=== PATIENT | female | born 1950 | race Caucasian/White ===

== ENCOUNTER 2018-04-07 01:02 | Outpatient (CLI) | payer MEDICARE, SELFPAY ==
[2018-04-07 10:43] LABS: Cholesterol 242 mg/dL (50-200); HDL Cholesterol 89 mg/dL (40-60); LDL CHOLESTEROL 134 mg/dL (<100); TSH (W/Ref FT4) 3.68 uIU/mL (0.358-3.74); Triglyceride 87 mg/dL (30-150)
== END 2018-04-07 01:22 ==
PROVIDERS: PCP Family Medicine; Visit Provider Family Medicine
DX: E78.00 Pure hypercholesterolemia, unspecified (principal); R79.89 Other specified abnormal findings of blood chemistry
CPT/HCPCS: 36415; 80061; 83721; 84443

== ENCOUNTER 2018-04-18 00:42 | Outpatient (CLI) | payer MEDICARE, SELFPAY ==
--- NOTE | 2018-04-18 15:45 | DI.DEXA_ITS ---
SYMPTOM/DIAGNOSIS: OSTEOPENIA, M85.88, M85.80 DEXA SCAN: The LAURA image shows no evidence of compression fractures. The bone mineral density measurements of the lumbar spine correspond to a total T score of -1.8, consistent with osteopenia. The bone mineral density measurements of the left hip correspond to a total T score of -1.3 and a femoral neck T score of -2.1, also in the osteopenic range. The bone mineral density measurements of the left forearm correspond to a T score of the distal third of the -1.5, consistent with osteopenia. IMPRESSION: Osteopenia of the lumbar spine, left hip and left forearm.
== END 2018-04-18 01:02 ==
PROVIDERS: PCP Family Medicine; Visit Provider Family Medicine
DX: M85.88 Other specified disorders of bone density and structure, other site (principal)
CPT/HCPCS: 77080

== ENCOUNTER 2019-04-17 10:35 | Outpatient (CLI) | payer MEDICARE, SELFPAY ==
[2019-04-18 10:58] LABS: Hepatitis C Ab w Rflx HCV PCR Negative (Negative)
== END 2019-04-17 10:55 ==
PROVIDERS: PCP Family Medicine; Visit Provider Family Medicine
DX: Z11.59 Encounter for screening for other viral diseases (principal)
CPT/HCPCS: 36415; 86803

== ENCOUNTER 2020-05-26 03:14 | Outpatient (CLI) | payer MEDICARE, SELFPAY ==
[2020-05-26 13:34] LABS: Vitamin D 25 Total 84.2 ng/ml (30-100)
== END 2020-05-26 03:15 | disposition home or self-care (01) ==
LOC: LBO 03:14
PROVIDERS: PCP Family Medicine; Visit Provider Family Medicine
DX: M81.0 Age-related osteoporosis without current pathological fracture (principal)
CPT/HCPCS: 36415; 82306

== ENCOUNTER 2020-07-24 00:57 | Outpatient (CLI) | payer MEDICARE, SELFPAY ==
--- NOTE | 2020-07-24 09:30 | DI.DEXA_ITS ---
Exam(s) XR DEXA BONE DENSITY W/WO LAURA EXAM: XR DEXA BONE DENSITY W/WO LAURA CLINICAL HISTORY: osteoporosis, M81.0, osteopenia, M85.80 TECHNIQUE: Routine DEXA evaluation of the lumbar spine, hip, or forearm. COMPARISON: Prior DEXA scan April 2018 FINDINGS: Performed on a [employer] unit. Lateral image: No compression fracture evident. Lumbar Spine total T-score: -1.5. Prior 2019 reading was -1.8 Hip total T-score:-1.5. Prior 2019 reading was -1.3. Independent reading at the left femoral neck yields a T-score of -2.2. Forearm total T-score: -1.7 IMPRESSION: Bone mineral density measures in the osteopenia range. Fracture risk is moderate. Note: Any spine fracture indicates 5x risk for subsequent spine fracture and 2x risk for subsequent h ip fracture. World Health Organization criteria for BMD interpretation classify patients: Normal...... T- Score at or above -1.0 Osteopenic... T- Score between -1.0 and -2.5 Osteoporosis... T-Score at or below -2.5
== END 2020-07-24 01:17 ==
PROVIDERS: PCP Family Medicine; Visit Provider Family Medicine
DX: M81.0 Age-related osteoporosis without current pathological fracture (principal); M85.89 Other specified disorders of bone density and structure, multiple sites
CPT/HCPCS: 77080

== ENCOUNTER 2021-08-03 20:33 | Outpatient (REF) | payer MEDICARE, SELFPAY ==
[2021-08-05 11:22] LABS: COVID-19 RT-PCR UVMMC Result Negative (Negative)
== END 2021-08-03 20:34 | disposition home or self-care (01) ==
LOC: LBN 20:33
PROVIDERS: PCP Family Medicine
DX: H92.01 Otalgia, right ear; Z20.822 Contact with and (suspected) exposure to COVID-19
CPT/HCPCS: U0003

== ENCOUNTER 2021-09-30 11:21 | Outpatient (REF) | payer MEDICARE, SELFPAY ==
--- NOTE | 2021-09-30 09:50 | ENDOMET_PTH ---
PATIENT: Isabel Lindquist LOC: [facility] U#:[id number] AGE/SX: 71/F ROOM: RE09/30/[address]: Prema Gomez MD : 1950 BED: DIS: 09/30/2021 SPEC #: [id number] RECD: 09/30/21 12:59 STATUS: ROSIO REQ #: [id number] MAYCO: 09/30/21 09:[address]: Prema Gomez DEPT: Surgical Specimen RECD BY: Ro Lugo ENTERED: 09/30/21 12:59 SP TYPE: Endomet OTHR DR: Paulette Zavala MD, DC Tissues: 1 - ENDOMETRIUM BX/CURRETTE Procedures: GROSS AND MICRO LEVEL 4 Comments: [id number]
== END 2021-09-30 11:22 | disposition home or self-care (01) ==
LOC: LBN 11:21
PROVIDERS: PCP Family Medicine; Visit Provider Obstetrics & Gynecology
DX: N95.0 Postmenopausal bleeding (principal); N71.1 Chronic inflammatory disease of uterus
CPT/HCPCS: 88305

== ENCOUNTER 2021-10-06 04:04 | Outpatient (CLI) | payer MEDICARE, SELFPAY ==
[2021-10-06 08:25] LABS: HCT 45.8 % (36.0-46.0); HGB 14.9 g/dL (11.2-15.7); MCH 29.3 pg (27.0-33.0); MCHC 32.5 % (32.0-36.0); MCV 90 fL (80-95); MPV 9.9 fL (8.0-11.0); Platelet Count 223 10^3/uL (130-400); RBC 5.09 10^6/uL (3.93-5.22); RDW 13.2 % (11.7-14.6); WBC 6.25 10^3/uL (4.4-10.8)
[2021-10-06 09:38] LABS: TSH (W/Ref FT4) 3.91 uIU/mL (0.36-3.74)
[2021-10-06 10:37] LABS: FREE T4 0.87 ng/dL (0.76-1.46)
== END 2021-10-06 04:05 | disposition home or self-care (01) ==
LOC: LBO 04:04
PROVIDERS: PCP Family Medicine; Visit Provider Family Medicine
DX: R87.620 Atypical squamous cells of undetermined significance on cytologic smear of vagina (ASC-US) (principal); E78.00 Pure hypercholesterolemia, unspecified
CPT/HCPCS: 36415; 85027; 84439; 84443

== ENCOUNTER → 2021-10-13 01:52 | Outpatient (CLI) | payer MEDICARE, SELFPAY ==
--- NOTE | 2021-10-13 06:45 | DI.US_ITS ---
Exam(s) US PELVIS TRANSVAGINAL EXAM: US PELVIS TRANSVAGINAL CLINICAL HISTORY: DDYSFUNCTIONAL UTERINE BLEEDING,VAGINAL ATROPHY,N93.8,N95.2. TECHNIQUE: Transabdominal and transvaginal pelvic ultrasound was performed using standard protocol. COMPARISON: No exams were available for comparison FINDINGS: KIDNEYS: Kidneys are symmetric in size. No evidence of renal calculi. No evidence of hydronephrosis. No renal mass or cyst identified. UTERUS: Position: Anteverted. Size: 5.5 long by 2.1 AP by 3.8 transverse cm Endometrium: 0.4 cm. Normal for patient's menstrual status. There is some fluid within the endometria l canal. Myometrium: Unremarkable. Cervix: Cervical nabothian cyst is present. OVARIES: The left ovary was only seen transabdominally. Right: In the right adnexa there is a 7.7 x 6.3 x 8.6 cm septated cystic mass. A separate right ovar y is not visualized. Left: 2.6 x 1.1 x 2.1 cm Cyst or mass: No suspicious cystic or solid masses. CUL-DE-SAC: Free fluid: None. Other: None. IMPRESSION: 1. Normal sonographic appearance of the kidneys. 2. Normal endometrial thickness in this postmenopausal patient. There is a small amount of fluid see n within the endometrial canal. 3. 7.7 x 6.3 x 8.6 cm septated cystic mass in the right adnexa. A separate right ovary is not visual ized. This may be ovarian in origin. Given the size and age of the patient malignancy should be con sidered. Gynecologic consult is recommended for further evaluation. MRI of the pelvis may be consid ered for further characterization. DATA REPOSITORY:
== END ==
PROVIDERS: PCP Family Medicine; Visit Provider Family Medicine
DX: N93.8 Other specified abnormal uterine and vaginal bleeding (principal); N95.2 Postmenopausal atrophic vaginitis
CPT/HCPCS: 76830; 76856

== ENCOUNTER 2021-10-19 03:50 | Outpatient (CLI) | payer MEDICARE, SELFPAY ==
[2021-10-19 09:58] LABS: Source Nasal/Nares
[2021-10-19 14:11] LABS: HCT 43.9 % (36.0-46.0); HGB 14.8 g/dL (11.2-15.7); MCH 29.7 pg (27.0-33.0); MCHC 33.7 % (32.0-36.0); MCV 88 fL (80-95); MPV 10.6 fL (8.0-11.0); Platelet Count 220 10^3/uL (130-400); RBC 4.99 10^6/uL (3.93-5.22); RDW 13.3 % (11.7-14.6); RDW-SD 43.1 fL
[2021-10-19 17:27] LABS: COVID-19 PCR Negative (Negative)
[2021-10-19 22:33] LABS: CEA <0.5 ng/mL (See Note)
[2021-10-20 09:17] LABS: CA 125 17 U/mL (<30)
[2021-10-21 12:38] LABS: CA 19-9 11 U/mL (<35)
== END 2021-10-19 03:51 | disposition home or self-care (01) ==
LOC: LBO 03:50
PROVIDERS: PCP Family Medicine; Visit Provider Obstetrics & Gynecology
DX: N95.0 Postmenopausal bleeding (principal); N83.291 Other ovarian cyst, right side; Z20.822 Contact with and (suspected) exposure to COVID-19; Z01.818 Encounter for other preprocedural examination; Z01.812 Encounter for preprocedural laboratory examination; Z80.0 Family history of malignant neoplasm of digestive organs; Z80.8 Family history of malignant neoplasm of other organs or systems; E78.5 Hyperlipidemia, unspecified
CPT/HCPCS: 36415; 85027; 86304; 86850; 86900; 86901; 87635; 82378; 85014; 85018; 86301

== ENCOUNTER 2021-10-21 07:27 | Day surgery (SDC) | payer MEDICARE, SELFPAY ==
[2021-10-21] VITALS (10 sets, daily range): BP systolic 98–144; BP diastolic 62–86; PULSE 53–78; RESP 10–18; TEMP 36–36.5; O2SAT 93–100; BMI 18.5
--- NOTE | 2021-10-21 08:08 | W.ANESPRE ---
General Info Date of Service Date Performed: 10/21/21 Height: 5 ft 2.5 in Weight: 46.6 kg Body Mass Index (BMI): 18.5 Surgical Procedure: Operation Date: 10/21/21 09:10 Proposed Procedure Side Surgeon p Dilation & Curettage Prema Gomez MD Meds Allergies and Home Medications Allergies Allergy/AdvReac Type Severity Reaction Status Date / Time Sulfa (Sulfonamide Allergy Unknown Verified 10/19/21 14:57 Antibiotics) Home Medication Medication Instructions Recorded cholecalciferol (vitamin D3) 125 5,000 unit PO DAILY 05/17/16 mcg (5,000 unit) capsule estradiol 10 mcg vaginal tablet 10 mcg vaginal 2X Week #25 tab-caps 05/25/21 (Vagifem) metronidazole 0.75 % topical cream 1 applic topical BID PRN 10/21/21 peg 800-[id number]-[id number] 1 1 drp ophthalmic (eye) DAILY 10/21/21 %-0.2 %-0.2 % eye drops (Dry Eye Relief) Current Visit Medications: Current Medications Generic Name Dose Route Start Last Admin Trade Name Freq PRN Reason Stop Dose Admin Ringer's Solution 1,000 mls @ 125 mls/hr 10/21/21 06:00 IV 11/19/21 23:59 INFUSION DOROTHEA IV Miscellaneous Supplies 1 each 10/21/21 06:00 Iv Access IV 11/19/21 23:59 DIRECTED DOROTHEA Sodium Chloride 0 ml 10/21/21 06:00 Normal Saline Flush 10 Ml Syr IV 11/19/21 23:59 PRN PRN Sodium Chloride 0 ml 10/21/21 06:00 Normal Saline 10 Ml Vial IJ 11/19/21 23:59 DIRECTED PRN Sterile Water 0 ml 10/21/21 06:00 Water,Injection,Sterile 10 Ml Vial IJ 11/19/21 23:59 DIRECTED PRN PFSH Active Problems Active Problems: Problem Status Onset Code Right ovarian cyst N83.201 Postmenopausal bleeding N95.0 Hypercholesteremia 03/03/17 E78.00 Sigmoid diverticulitis 08/25/15 K57.32 Medical History Medical History Abnormal thyroid blood test (04/25/15) Cerumen debris on tympanic membrane Family history of GI malignancy mom-colon CA at age 55 Family history of Bolden syndrome Neuralgia (04/21/15) L cervical and arm Osteopenia Pap smear vag w ASC-US neg. HPV Rosacea Seasonal allergic reaction Vaginal atrophy (12/31/13) Stopped vagifem September 2021 with discovery of large ovarian cyst Vertigo (02/28/14) Vitamin D deficiency (12/31/13) Surgical History Surgical History Colonoscopy - MAC (~2005) n/l Endometrial Biopsy neg H/O surgical procedure endometrial biopsy-N/L Tobacco Smoking/Tobacco Use Status: Never Passive smoking exposure: Yes Second hand exposure: Yes Alcohol Alcohol Intake: former Substance Use Substance use: Never Substance use type: does not use Vital Signs and Lab Results Vital Signs Most Recent Vital Signs in EMR: Most Recent Vital Signs Temp Pulse Resp BP Pulse Ox 36.5 C 78 18 115/85 98 10/21/21 07:40 10/21/21 07:40 10/21/21 07:40 10/21/21 07:40 10/21/21 07:40 Lab Results Blood Type / Crossmatch: Patient ABO/Rh A Positive 10/19/21 Antibody Screen NEGATIVE 10/19/21 Complete Blood Count: White Blood Count 7.50 10^3/uL (4.4-10.8) 10/19/21 13:38 Red Blood Count 4.99 10^6/uL (3.93-5.22) 10/19/21 13:38 Hemoglobin 14.8 g/dL (11.2-15.7) 10/19/21 13:38 Hematocrit 43.9 % (36.0-46.0) 10/19/21 13:38 Platelet Count 220 10^3/uL (130-400) 10/19/21 13:38 Complete Metabolic Panel: No Data to Display Liver Function Panel: No Data to Display Coagulation Panel: No Data to Display Cardiac Panel: No Data to Display Arterial Blood Gas: No Data to Display Venous Blood Gas: No Data to Display Pancreas Panel: No Data to Display Thyroid Panel: Thyroid Stimulating Hormone (TSH) 3.91 uIU/mL (0.36-3.74) H 10/06/21 08:14 Infectious Disease: Coronavirus (COVID-19)(PCR) Negative (Negative) 10/19/21 09:45 Coronavirus 2019 Source Nasal/Nares 10/19/21 09:45 Blood Cultures: No Data to Display Toxicology Panel: No Data to Display Anesthesia Assessment and Plan Anesthesia History Personal History: No History of Anesthesia Complications Family History: No Family History of Anesthesia Complications Exercise Tolerance Exercise Tolerance: Metabolic Equivalents>4 Pertinent Negatives Pertinent Negatives: No Symptoms of GERD, No Major Cardiovascular Symptoms or Complaints, No Major Pulmonary Symptoms or Complaints and No History of CVA/TIA Cardiac & Pulmonary Exam Cardiac Exam: Normal S1/S2 Heart Sounds Pulmonary Exam: Clear Bilateral Breath Sounds Implantable Cardiac Device Does patient have a Pacemaker or an ICD?: No Airway Exam Known Difficult Airway: No Mallampati Class: 1 Mouth Opening: Normal (> 3cm) Thyromental Distance: Greater than 3 cm Neck Range of Motion: Full ROM Neck Circumference: Normal Teeth Condition: Normal Dentition ASA Classification ASA Score: ASA 2 Emergency Case?: No NPO Status NPO Status: NPO Clears >2 hours, Solids >8 hours Anesthesia Plan Resuscitation Status: Full Code Anesthesia Technique: General Anesthesia Airway Planned: Natural Airway Monitors Used: Standard Monitors
[2021-10-21] MEDS: Lactated Ringers 1,000 ML 125 ML IV (08:15)
--- NOTE | 2021-10-21 11:19 | W.ANESPOSTOP ---
Postoperative Evaluation Date, Time and Location Date Performed: 10/21/21 Time Performed: 11:03 Patient Location: Day Surgery Unit Vital Signs Most Recent Imported Vital Signs: Most Recent Vital Signs Temp Pulse Resp BP Pulse Ox 36.1 C L 60 18 108/82 93 10/21/21 10:40 10/21/21 10:40 10/21/21 10:40 10/21/21 10:40 10/21/21 10:40 Pain Score Most Recent Pain Score: Most Recent Pain Score Pain Level 1 10/21/21 10:40 Assessment Mental Status: Awake (Alert & Oriented to Patient Baseline) Airway and Respiratory Function: Patent airway with normal (patient baseline) respiratory exam Cardiovascular Function: Hemodynamically Stable Hydration Status: Adequately Hydrated Nausea & Vomiting: No Nausea or Vomiting Pain: Pain is tolerable per patient Peripheral Nerve Block: Patient did not receive a nerve block
--- NOTE | 2021-10-21 11:51 | W.PM.DSUDISC ---
Discharge Plan Disposition Patient Disposition: HOME Condition: Good Discharge Details Attending Provider: Prema Gomez Primary Care Provider: Paulette Zavala Home Meds and New Rx's Prescriptions: No Action estradiol [Vagifem] 10 mcg tablet 10 mcg VG 2X Week Qty: 25 12RF Hold Instructions: Home Medication placed on hold at Doctor's office cholecalciferol (vitamin D3) 5,000 UNIT capsule 5,000 unit PO DAILY metronidazole 0.75 % cream 1 applic TOPICAL BID PRN Dry Eye Relief 1-0.2-0.2 % Drops 1 drp ophthalmic (eye) DAILY Discharge Instructions Stand Alone Forms: Anesthesia Discharge Inst., DSU Post LMFT Surgery, Daniela Dominguez (DSU) Activity:: Activity as Tolerated Diet:: As Tolerated Discharge Orders Discharge Orders: Discharge Order (Routine); Ordered 10/21/21 Ordered By: Prema Gomez DS: Diagnosis Discharge Diagnosis (1) Postmenopausal bleeding: Status: Acute Asessment and Plan: D&C unsuccessful. Will refer to [facility] [place] financial report service sales agent/onc for eval of ovarian mass and uterine lining
--- NOTE | 2021-10-21 11:54 | W.PM.OP ---
Date of service: 10/21/21 Time of Service: 09:00 Operative Note Operative Note DATE OF PROCEDURE: 10/21/21 PRE-OP DIAGNOSIS: PMB Stenotic cervix PROCEDURE: Exam under anesthesia. Ultrasound guided attempted cervical dilation. SURGEON: Prema Gomez ASSISTING SURGEON: Rachel Chen Refer to Anesthesia Record ESTIMATED BLOOD LOSS: 100 COMPLICATIONS: Other (perforation) Indications: Pt presented with postmenopausal bleeding and underwent attempted endometrial biopsy in office which only collected endocervical cells. Ultrasound showed a 4mm endostripe but fluid within the endometrial canal. There was also incidental finding of an 8cm septated right ovarian mass. CA-125, CEA and CA19-9 were all normal. Findings: Small anterverted uterus, General fullness in the right pelvis. Minimal cervical tissue visualized vaginally, stenotic cervical canal. Procedure Description: After informed consent was signed the patient was taken to the operating room and given General room air anesthesia. SCDs were placed on her legs. She was prepped and draped in the dorsal lithotomy position in the Clifford stirrups. A time out was performed. Her bladder was drained of urine. Exam under anesthesia revealed the previously mentioned findings. A speculum was placed into the vagina to reveal the cervix. The anterior lip of what appeared to be the cervix was grasped with a single tooth tenaculum. First the tract on the patient's right that had been noticed during the office biopsy was explored. Resistance was met within about 4cm. Under ultrasound it appeared that pushing further may lead to perforation. Some scar tissue in the center of the cervix was released and attempts were made to find a clear passage. This was unsuccessful. The hysteroscope was then assemble and attempts were made under direct visualization. While exploring the left side of the patients cervix the hysteroscope perforated into the abdominal cavity. Some filmy adhesions were noted but there was no evidence of damage to bowel or other organs. The scope was removed quickly. There was no significant bleeding noted from this area. The decision was made to end the procedure. The tenaculum was removed from the cervix with good hemostasis. The speculum was removed from the vagina. The patient was placed back into the supine position. She was moved to the stretcher and taken to the recovery room in stable condition.
== END 2021-10-21 12:29 | disposition home or self-care (01) ==
PROVIDERS: PCP Family Medicine; Visit Provider Obstetrics & Gynecology
PROC: (CPT 58555; principal; 2021-10-21 09:00)
DX: N95.0 Postmenopausal bleeding (principal); N99.71 Accidental puncture and laceration of a genitourinary system organ or structure during a genitourinary system procedure; N88.2 Stricture and stenosis of cervix uteri; Z80.0 Family history of malignant neoplasm of digestive organs; E78.00 Pure hypercholesterolemia, unspecified; E55.9 Vitamin D deficiency, unspecified; N83.291 Other ovarian cyst, right side
CPT/HCPCS: 58555; J0690; J1885; J2250; J2405

== ENCOUNTER 2022-06-11 01:14 | Outpatient (CLI) | payer MEDICARE, SELFPAY ==
--- NOTE | 2022-06-11 09:11 | DI.RAD_ITS ---
Exam(s) XR SHOULDER RT COMPLETE 2+V EXAM: XR SHOULDER RT COMPLETE 2+V CLINICAL HISTORY: r shoulder pain,M25.511. TECHNIQUE: 2D digital imaging was performed. Five views. COMPARISON: No exams were available for comparison FINDINGS: BONES: No acute fracture is present. No bony destructive lesion is seen. JOINTS: No dislocation present. No significant spurring at AC joint or glenohumeral joint. Humeral head appears high riding which could indicate chronic rotator cuff tear. SOFT TISSUE: Normal. IMPRESSION: Mild degenerative changes. Question of chronic rotator cuff tear. DATA REPOSITORY: RADIATION DOSE DELIVERED:
== END 2022-06-11 01:34 ==
LOC: DI 01:15
PROVIDERS: PCP Family Medicine; Visit Provider Family Medicine
DX: M25.511 Pain in right shoulder (principal); M25.811 Other specified joint disorders, right shoulder
CPT/HCPCS: 73030

== ENCOUNTER 2022-06-25 00:56 | Outpatient (CLI) | payer MEDICARE, SELFPAY ==
--- NOTE | 2022-06-25 07:15 | DI.US_ITS ---
Exam(s) US AAA SCREENING EXAM: US AAA SCREENING CLINICAL HISTORY: second hand smoke/family hx,z77.22 COMPARISON: No exams were available for comparison FINDINGS: Abdominal Aorta: Proximal: 2.4 cm Mid: 1.8 cm Distal: 1.8 cm Iliacs: Right: 0.2 cm Left: 1.2 cm IMPRESSION: No evidence of abdominal aortic aneurysm. DATA REPOSITORY:
== END 2022-06-25 01:16 ==
LOC: DI 00:56
PROVIDERS: PCP Family Medicine; Visit Provider Family Medicine
DX: Z77.22 Contact with and (suspected) exposure to environmental tobacco smoke (acute) (chronic) (principal)
CPT/HCPCS: 76706

== ENCOUNTER 2022-07-01 02:28 | Outpatient (CLI) | payer MEDICARE, SELFPAY ==
--- NOTE | 2022-07-01 06:45 | DI.MRI_ITS ---
Exam(s) MR UPPER JOINT RT WO EXAM: MR UPPER JOINT RT WO CLINICAL HISTORY: R shoulder pain, despite PT and xray,m25.511. TECHNIQUE: Multiplanar multisequence MRI was performed. COMPARISON: Plain films June 03 FINDINGS: BONES: No fracture or contusion. Degenerative cysts in the superior humeral head. JOINTS:The acromioclavicular joint shows mild degenerative changes. The glenohumeral joint shows a s mall amount of fluid. TENDONS: Supraspinatus: Full-thickness tear with retraction to the level of the glenoid. No significant muscl e atrophy. Infraspinatus: Tendinosis. Subscapularis: Unremarkable. Teres [place]: Unremarkable. Biceps and [place]: Unremarkable. MUSCLES: Unremarkable. GLENOID LABRUM: Unremarkable on this noncontrast examination. SOFT TISSUES: Unremarkable. OTHER: Subacromial and subdeltoid bursae shows a small amount of fluid. Fluid in the subcoracoid bu rsa.. IMPRESSION: Full-thickness tear with retraction of the supraspinatus tendon. Infraspinatus tendinosis. DATA REPOSITORY:
== END 2022-07-01 02:48 ==
LOC: DI 02:28
PROVIDERS: PCP Family Medicine; Visit Provider Family Medicine
DX: M25.511 Pain in right shoulder (principal)
CPT/HCPCS: 73221

== ENCOUNTER → 2022-07-06 09:50 | Outpatient (BNVA) | payer MEDICARE, SELFPAY | PROVIDERS: PCP Family Medicine; Referring Provider Family Medicine; Visit Provider Student in an Organized Health Care Education/Training Program | DX: M75.101 Unspecified rotator cuff tear or rupture of right shoulder, not specified as traumatic (principal) | CPT/HCPCS: 99204 ==

== ENCOUNTER 2024-08-23 01:56 | Outpatient (CLI) | payer MEDICARE, SELFPAY ==
[2024-08-23 10:25] LABS: ALT 30 U/L (14-59); Albumin 4.2 g/dL (3.4-5.0); Alkaline Phosphatase 82 U/L (46-116); Anion Gap 8.5 mmol/L (3-11); BUN 20 mg/dL (7-18); Bilirubin, Total 0.8 mg/dL (0.2-1.0); CO2 30.5 mmol/L (21.0-32.0); CREATININE 0.9 mg/dL (0.55-1.02); Calcium 9.3 mg/dL (8.5-10.1); Calculated LDL 118 mg/dL (<100); Chloride 102 mmol/L (98-107); Cholesterol 228 mg/dL (<200); Estimated GFR 66.67 (mL/min/1.73m2); Glucose 88 mg/dL (74-106); HDL Cholesterol 97 mg/dL (>or=50); Potassium 4.4 mmol/L (3.5-5.1); Sodium 141 mmol/L (136-145); Total Protein 7.6 g/dL (6.4-8.2); Triglyceride 68 mg/dL (<150)
[2024-08-23 10:52] LABS: AST 32 U/L (15-37)
== END 2024-08-23 01:57 | disposition home or self-care (01) ==
PROVIDERS: PCP Family Medicine; Visit Provider Family Medicine
DX: I10 Essential (primary) hypertension (principal)
CPT/HCPCS: 36415; 80053; 80061